=== PATIENT | female | born 1970 | race African-American/Black ===

== ENCOUNTER → 2017-07-29 | Day surgery (SDC) | payer OTHER ==
[~2017-07-29] MED LIST: SILVER NITRATE STICK TP; SURGICEL HEMOSTAT 4X8 EACH.
[2017-07-29] MEDS: LIDOCAINE 1%/EPI 1:100,000 20 ML VIAL. INJ (14:10)
[2017-07-29] MEDS: LIDOCAINE 2%/EPI 1:100,000 20 ML VIAL. IJ (14:40)
== END ==
LOC: SURG 13:24
DX: R59.9 Enlarged lymph nodes, unspecified (principal); Z88.8 Allergy status to other drugs, medicaments and biological substances
CPT/HCPCS: 11401; 88305; J3490

== ENCOUNTER → 2018-03-03 | Outpatient (CLI) | payer OTHER ==
[2017-07-29 13:47] VITALS: BP 147/97
[~2018-03-03] MED LIST changes: +FLUT9.9S NS; +NORG1TAB34 PO; -SILVER NITRATE STICK TP; -SURGICEL HEMOSTAT 4X8 EACH.
--- NOTE | 2018-03-04 08:58 | RAD ---
DATE: 03/03/2018 EXAM: MAMMO EDWARDO SCREENING BILATERAL HISTORY: Routine screening COMPARISON: 03/28/2017 screen mammogram performed at [facility] This study was interpreted with the benefit of Computerized Aided Detection (CAD). Breast Density: HETERO The breast parenchyma is heterogenously dense, which could reduce sensitivity of mammography. Breast parenchyma level C. FINDINGS: Benign right axillary lymph nodes are present. No suspicious calcifications, masses, or distortion. Parenchymal distribution is stable. IMPRESSION: Normal BI-RADS CATEGORY: 2 BENIGN FINDING(S) RECOMMENDED FOLLOW-UP: 12M 12 MONTH FOLLOW-UP PQRS compliance statement: Patient information was entered into a reminder system with a target due date in one year for the next mammogram. Mammography is a sensitive method for finding small breast cancers, but it does not detect them all and is not a substitute for careful clinical examination. A negative mammogram does not negate a clinically suspicious finding and should not result in delay in biopsying a clinically suspicious abnormality. "Our facility is accredited by the [employer] Mammography Program."
== END | disposition home or self-care (01) ==
LOC: MAMMO 17:00
PROVIDERS: ATTEND Family Medicine
DX: Z12.31 Encounter for screening mammogram for malignant neoplasm of breast (principal)
CPT/HCPCS: 77063; 77067

== ENCOUNTER 2018-05-21 11:18 | Emergency (ER) | payer OTHER ==
[~2018-05-21] VITALS: Ht 162.6 cm; Wt 58.1 kg
[2018-05-21 12:30] LABS: BILIRUBIN,URINE SMALL (NEG); CLARITY,URINE CLOUDY; COLOR,URINE AMBER; NITRITE,URINE NEGATIVE (NEG); PROTEIN,URINE 100 mg/dL (NEG-TRACE)
[2018-05-21] MEDS ORDERED: IV NORMAL SALINE 1000ML BAG 1,000 ML IV ONE (12:30)
[2018-05-21] MEDS ORDERED: KETOROLAC 30 MG/ML VIAL. IV ONE (12:30)
[2018-05-21] MEDS ORDERED: FAMOTIDINE 20 MG/2 ML VIAL IVP ONE (12:30)
[2018-05-21] MEDS ORDERED: ONDANSETRON PF 4 MG/2 ML VIAL. IV ONE (12:30)
--- NOTE | 2018-05-21 12:30 | PHYS DOC ---
Past Medical History Past Medical History: Hypertension Additional Past Surgical Histo: L LYMPH NODE REMOVED, BREAST CYST Additional Information: nonsmoker Alcohol Use: None Drug Use: None Adult General Chief Complaint Chief Complaint: NAUSEA/VOMITING/DIARRHA HPI HPI Patient is a 48-year-old female is presenting with nausea and vomiting 3 that began this morning. She reports left upper quadrant pain that is constant, dull , exacerbated by eating and movement, and at it's worst she reports this pain to be a 7/10 but it has subsided for now. She reports lethargy, chills, and dizziness. She denies fever, constipation, diarrhea, cough, and SOB. Her last menstrual period ended three days ago. She has a PMH of HTN controlled with amlodipine and losartan and she was able to take her medications this morning. She denies trauma. Review of Systems Review of Systems Constitutional: Denies fever, reports chills [] Eyes: Denies change in visual acuity, redness, or eye pain [] HENT: Denies nasal congestion or sore throat [] Respiratory: Denies cough or shortness of breath [] Cardiovascular: Denies chest pain or palpitations [] GI: Reports abdominal pain, nausea, and vomiting, denies constipation or diarrhea [] : Denies dysuria or hematuria [] Musculoskeletal: Denies back pain or joint pain [] Integument: Denies rash or skin lesions [] Neurologic: Denies headache, focal weakness or sensory changes [] Complete systems were reviewed and found to be within normal limits, except as documented in this note. Current Medications Current Medications Current Medications Medications (Trade) Dose Ordered Sig/[facility] Start Time Stop Time Status Last Admin Dose Admin Famotidine (Pepcid Vial) 20 mg 1X ONCE 05/21/18 12:30 05/21/18 12:31 DC 05/21/18 12:42 20 MG Ketorolac Tromethamine (Toradol 30mg Vial) 30 mg 1X ONCE 05/21/18 12:30 05/21/18 12:31 DC 05/21/18 12:42 30 MG Ondansetron HCl (Zofran) 4 mg 1X ONCE 05/21/18 12:30 05/21/18 12:31 DC 05/21/18 12:42 4 MG Sodium Chloride 1,000 ml @ 1,000 mls/hr 1X ONCE 05/21/18 12:30 05/21/18 13:29 DC 05/21/18 12:42 1,000 MLS/HR Allergies Allergies Allergies Coded Allergies Type Severity Reaction Last Updated Verified sulfamethoxazole Allergy Intermediate Hives 07/29/17 Yes trimethoprim Allergy Intermediate Hives 07/29/17 Yes morphine Allergy Mild VOMITING 05/21/18 Yes Influenza Virus Vaccines Allergy Unknown 05/21/18 Yes Physical Exam Physical Exam Constitutional: Well developed, well nourished, no acute distress, non-toxic appearance. [] HENT: Normocephalic, atraumatic, nose normal. [] Eyes: Conjunctiva normal, no discharge. [] Neck: Normal range of motion, no tenderness, supple. [] Cardiovascular: Heart rate regular rhythm, no murmur [] Lungs & Thorax: Bilateral breath sounds clear to auscultation [] Abdomen: Soft,mild tenderness in the LUQ, non-peritoneal. [] Skin: Warm, dry, no erythema, no rash. [] Extremities: No tenderness, no edema. [] Neurologic: Alert and oriented X 3, no focal deficits noted. [] Psychologic: Affect normal, judgement normal, mood normal. [] Current Patient Data Vital Signs Vital Signs Date Time Temp Pulse Resp B/P (MAP) Pulse Ox O2 Delivery O2 Flow Rate FiO2 05/21/18 13:20 77 19 102/62 (75) 100 Room Air 05/21/18 11:50 97.9 97.9 Lab Values Laboratory Tests Test 05/21/18 12:00 05/21/18 12:35 Urine Collection Type Unknown Urine Color Patricia Urine Clarity Cloudy Urine pH 6.0 Urine Specific [place] 1.025 Urine Protein 100 mg/dL (NEG-TRACE) Urine Glucose (UA) Negative mg/dL (NEG) Urine Ketones (Stick) 15 mg/dL (NEG) Urine Blood Moderate (NEG) Urine Nitrite Negative (NEG) Urine Bilirubin Small (NEG) Urine Urobilinogen Dipstick 1.0 mg/dL (0.2 mg/dL) Urine Leukocyte Esterase Trace (NEG) Urine RBC 11-20 /HPF (0-2) Urine WBC 5-10 /HPF (0-4) Urine Squamous Epithelial Cells Mod /LPF Urine Bacteria Many /HPF (0-FEW) Urine Mucus Marked /LPF Urine Test Negative (NEG) White Blood Count 21.2 x10^3/uL (4.0-11.0) H Red Blood Count 3.89 x10^6/uL (3.50-5.40) Hemoglobin 12.5 g/dL (12.0-15.5) Hematocrit 38.4 % (36.0-47.0) Mean Corpuscular Volume 99 fL (79-100) Mean Corpuscular Hemoglobin 32 pg (25-35) Mean Corpuscular Hemoglobin Concent 33 g/dL (31-37) Red Cell Distribution Width 13.4 % (11.5-14.5) Platelet Count 306 x10^3/uL (140-400) Neutrophils (%) (Auto) 91 % (31-73) H Lymphocytes (%) (Auto) 4 % (24-48) L Monocytes (%) (Auto) 4 % (0-9) Eosinophils (%) (Auto) 0 % (0-3) Basophils (%) (Auto) 0 % (0-3) Neutrophils # (Auto) 19.4 x10^3uL (1.8-7.7) H Lymphocytes # (Auto) 0.8 x10^3/uL (1.0-4.8) L Monocytes # (Auto) 0.9 x10^3/uL (0.0-1.1) Eosinophils # (Auto) 0.0 x10^3/uL (0.0-0.7) Basophils # (Auto) 0.1 x10^3/uL (0.0-0.2) Segmented Neutrophils % 93 % (35-66) H Lymphocytes % 1 % (24-48) L Monocytes % 6 % (0-10) Toxic Vacuolation Slight Platelet Estimate Adequate (ADEQUATE) Sodium Level 133 mmol/L (136-145) L Potassium Level 3.9 mmol/L (3.5-5.1) Chloride Level 102 mmol/L (98-107) Carbon Dioxide Level 24 mmol/L (21-32) Anion Gap 7 (6-14) Blood Urea Nitrogen 14 mg/dL (7-20) Creatinine 0.9 mg/dL (0.6-1.0) Estimated GFR (Cockcroft-Gault) 80.9 BUN/Creatinine Ratio 16 (6-20) Glucose Level 93 mg/dL (70-99) Calcium Level 9.4 mg/dL (8.5-10.1) Magnesium Level 2.1 mg/dL (1.8-2.4) Total Bilirubin 0.7 mg/dL (0.2-1.0) Aspartate Amino Transferase (AST) 48 U/L (15-37) H Alanine Aminotransferase (ALT) 32 U/L (14-59) Alkaline Phosphatase 65 U/L (46-116) Total Protein 7.8 g/dL (6.4-8.2) Albumin 3.4 g/dL (3.4-5.0) Albumin/Globulin Ratio 0.8 (1.0-1.7) L Lipase 102 U/L (73-393) Laboratory Tests 05/21/18 12:35 Laboratory Tests 05/21/18 12:35 EKG EKG [] Radiology/Procedures Radiology/Procedures PROCEDURE: CT ABDOMEN PELVIS WO CONTRAST Examination: CT of the abdomen pelvis without contrast HISTORY: History of left abdominal pain, hematuria COMPARISON: None available Technique: Axial CT images of the abdomen pelvis were performed without contrast. Coronal and sagittal deformities are performed Exposure: One or more of the following individualized dose reduction techniques were utilized for this examination: 1. Automated exposure control 2. Adjustment of the mA and/or kV according to patient size 3. Use of iterative reconstruction technique FINDINGS: The bibasilar lungs are clear. No evidence of free air identified in the abdomen. The visualized noncontrasted liver, spleen, adrenals grossly appears unremarkable. Multiple gallstones identified within the gallbladder. There is a large gallstone identified in the proximal gallbladder. The gallbladder is mildly distended. The stomach is mildly distended. The visualized pancreas grossly appears unremarkable. The small bowel is nondilated. Feces and gas noted in the colon. The appendix is not evident. Punctate 3 mm intrarenal collecting system calculus identified in the right kidney. No evidence of calculus identified in the left kidney. Calcified pelvic phleboliths identified. There is mild fat stranding identified in the pelvis about the distal uterus and cervix region, nonspecific. Mild degenerative changes lumbar spine. There is a small lucent focus identified in the medial femoral head region measuring 8 mm, uncertain etiology probably benign. IMPRESSION: 1. Cholelithiasis. Large gallstone identified in the proximal gallbladder. Ultrasound right upper quadrant is recommended. 2. There is minimal fat stranding identified about the distal uterus and cervix region, nonspecific ultrasound pelvis can be considered. 3. Punctate 3 mm calculus right kidney. No evidence of hydronephrosis. 4. There is a small lucent focus identified in the medial left femoral head region measuring 8 mm, uncertain etiology probably benign. If there is left hip pain a follow-up nonemergent bone scan may be useful. Electronically signed by: Keith Miranda MD (05/21/2018 1:57 PM) [place] [id number] Course & Med Decision Making Course & Med Decision Making Pertinent Labs and Imaging Studies reviewed. (See chart for details) Patient is a 48-year-old female is presenting with one-day history of nausea and vomiting. History and physical exam were indicative of viral gastroenteritis. Labs were obtained and posted to chart. CBC showed a white count of 21.2. CMP showed mild elevation of AST at 45. UA showed some blood and white cells but was concerning for contamination. Patient was asymptomatic for urinary symptoms. Abdominal CT was ordered because of the white count and showed cholelithiasis and mild distension of the gall bladder, minimal fat stranding about the distal uterus, 3mm kidney stone within the right kidney with no hydronephrosis, and small lucent focus in the medial left femoral head. These findings were discussed with the patient and given copy of CT results and was given referral for general surgery and orthopedic surgery to have these findings further evaluated if they should become worse. Pain and nausea were addressed. Patient stable for discharge with outpatient follow-up with PCP. Discussed findings and plan with patient, who acknowledges understanding and agreement. Dragon Disclaimer Dragon Disclaimer This electronic medical record was generated, in whole or in part, using a voice recognition dictation system. Departure Departure Impression: Primary Impression: Abdominal pain Additional Impressions: Nausea & vomiting Cholelithiasis Abnormal finding on radiology exam Disposition: HOME, SELF-CARE Condition: STABLE Referrals: BE DIEHL MD (PCP) TENISHA LARSON MD, JOHN N MD Patient Instructions: Abdominal Pain (Nonspecific), Cholelithiasis, Easy-to- Read, Diet for Diarrhea, Adult, Incidental Abdominal Radiological Finding, Nausea and Vomiting, [id number] Additional Instructions: Start with clear liquid diet (ie augie charles/7-up/sprite/water/gatoraid/chicken broth) and advance as tolerated to a bland diet (saltine crackers/white rice/ dry toast). Scripts Hyoscyamine Sulfate (LEVSIN-SL) 0.125 Mg Tab.subl 1-2 TAB SL PRN Q4HRS, #20 TAB 1 Refill Prov: SOFIA TOVAR DO 05/21/18 Famotidine (PEPCID) 20 Mg Tablet 20 MG PO BID, #14 TAB Prov: SOFIA TOVAR DO 05/21/18 Ondansetron (ONDANSETRON ODT) 4 Mg Tab.rapdis 1 TAB PO PRN Q6-8HRS PRN for NAUSEA, #16 TAB Prov: SOFIA TOVAR DO 05/21/18 Problem Qualifiers Primary Impression: Abdominal pain Abdominal location: left upper quadrant Qualified Codes: R10.12 - Left upper quadrant pain Additional Impressions: Nausea & vomiting Vomiting type: unspecified Vomiting Intractability: non-intractable Qualified Codes: R11.2 - Nausea with vomiting, unspecified Cholelithiasis Cholelithiasis location: gallbladder Cholecystitis presence: without cholecystitis Biliary obstruction: without biliary obstruction Qualified Codes: K80.20 - Calculus of gallbladder without cholecystitis without obstruction SOFIA TOVAR DO May 21, 2018 12:30
[2018-05-21 12:36] LABS: SQUAMOUS EPITHELIAL CELL,UR MOD /LPF
[2018-05-21 12:37] LABS: BACTERIA,URINE MANY /HPF (0-FEW)
[2018-05-21 12:48] LABS: BASO # 0.1 x10^3/uL (0.0-0.2); BASO % 0 % (0-3); EOS % 0 % (0-3); HEMATOCRIT 38.4 % (36.0-47.0); HEMOGLOBIN 12.5 g/dL (12.0-15.5); LYMPH # 0.8 x10^3/uL (1.0-4.8); LYMPH % 4 % (24-48); MEAN CORPUSCULAR HEMOGLOBIN 32 pg (25-35); MEAN CORPUSCULAR HGB CONC 33 g/dL (31-37); MEAN CORPUSCULAR VOLUME 99 fL (79-100); MONO # 0.9 x10^3/uL (0.0-1.1); MONO % 4 % (0-9); NEUT # 19.4 x10^3uL (1.8-7.7); NEUT % 91 % (31-73); PLATELET COUNT 306 x10^3/uL (140-400); RED BLOOD COUNT 3.89 x10^6/uL (3.50-5.40); RED CELL DISTRIBUTION WIDTH 13.4 % (11.5-14.5); WHITE BLOOD COUNT 21.2 x10^3/uL (4.0-11.0)
[2018-05-21 13:05] LABS: CALCIUM 9.4 mg/dL (8.5-10.1); CREATININE 0.9 mg/dL (0.6-1.0); GFR 80.9; POTASSIUM 3.9 mmol/L (3.5-5.1)
[2018-05-21 13:11] LABS: ALBUMIN 3.4 g/dL (3.4-5.0); ALBUMIN/GLOBULIN RATIO 0.8 (1.0-1.7); MAGNESIUM 2.1 mg/dL (1.8-2.4); TOTAL BILIRUBIN 0.7 mg/dL (0.2-1.0); TOTAL PROTEIN 7.8 g/dL (6.4-8.2)
[2018-05-21 13:15] LABS: U PREG PATIENT NEGATIVE (NEG)
[2018-05-21 13:23] LABS: % LYMPHS 1 % (24-48); % MONOS 6 % (0-10); % SEGS 93 % (35-66); PLT ESTIMATE ADEQUATE (ADEQUATE); TOXIC VACUOLATION SLIGHT
[2018-05-21 14:00] VITALS: BP 98/62
--- NOTE | 2018-05-21 14:01 | RAD ---
Examination: CT of the abdomen pelvis without contrast HISTORY: History of left abdominal pain, hematuria COMPARISON: None available Technique: Axial CT images of the abdomen pelvis were performed without contrast. Coronal and sagittal deformities are performed Exposure: One or more of the following individualized dose reduction techniques were utilized for this examination: 1. Automated exposure control 2. Adjustment of the mA and/or kV according to patient size 3. Use of iterative reconstruction technique FINDINGS: The bibasilar lungs are clear. No evidence of free air identified in the abdomen. The visualized noncontrasted liver, spleen, adrenals grossly appears unremarkable. Multiple gallstones identified within the gallbladder. There is a large gallstone identified in the proximal gallbladder. The gallbladder is mildly distended. The stomach is mildly distended. The visualized pancreas grossly appears unremarkable. The small bowel is nondilated. Feces and gas noted in the colon. The appendix is not evident. Punctate 3 mm intrarenal collecting system calculus identified in the right kidney. No evidence of calculus identified in the left kidney. Calcified pelvic phleboliths identified. There is mild fat stranding identified in the pelvis about the distal uterus and cervix region, nonspecific. Mild degenerative changes lumbar spine. There is a small lucent focus identified in the medial femoral head region measuring 8 mm, uncertain etiology probably benign. IMPRESSION: 1. Cholelithiasis. Large gallstone identified in the proximal gallbladder. Ultrasound right upper quadrant is recommended. 2. There is minimal fat stranding identified about the distal uterus and cervix region, nonspecific ultrasound pelvis can be considered. 3. Punctate 3 mm calculus right kidney. No evidence of hydronephrosis. 4. There is a small lucent focus identified in the medial left femoral head region measuring 8 mm, uncertain etiology probably benign. If there is left hip pain a follow-up nonemergent bone scan may be useful. Electronically signed by: Keith Miranda MD (05/21/2018 1:57 PM) [place] [id number]
[2018-05-21] MEDS ORDERED: FAMO-63 PO (14:20)
[2018-05-21] MEDS ORDERED: ONDA4TAB12 PO (14:20)
[2018-05-21] MEDS ORDERED: HYOS0.1265 SL (14:20)
== END 2018-05-21 14:40 | disposition home or self-care (01) ==
LOC: ER 11:18
DX: K80.20 Calculus of gallbladder without cholecystitis without obstruction (principal); R93.89 Abnormal findings on diagnostic imaging of other specified body structures; R11.2 Nausea with vomiting, unspecified; R42 Dizziness and giddiness; R53.83 Other fatigue; R68.83 Chills (without fever); I10 Essential (primary) hypertension; Z88.2 Allergy status to sulfonamides; Z88.1 Allergy status to other antibiotic agents; Z88.5 Allergy status to narcotic agent; Z88.7 Allergy status to serum and vaccine
CPT/HCPCS: 36415; 74176; 80053; 81001; 81025; 83690; 83735; 85007; 85025; 96361; 96374; 96375; 99284; J1885; J2405; J3490; J7030; 87086

== ENCOUNTER 2018-06-04 09:30 | Day surgery (SDC) | payer OTHER ==
[~2018-06-04] VITALS: Ht 162.6 cm; Wt 62.1 kg
[~2018-06-04 09:30] MED LIST changes: +FAMO-63 PO; +HYDROmorphone 2 MG/ML VIAL IV PRN; +HYOS0.1265 SL; +IV RINGERS,LACTATED 1000ML 1,000 ML IV SCH; +LIDOCAINE 1% PF 2 ML VIAL. ID PRN; +ONDA4TAB12 PO; +ONDANSETRON PF 4 MG/2 ML VIAL. IV PRN; +PROCHLORPERAZINE 10 MG/2 ML VIAL. IV PRN; +fentaNYL PF VIAL 100 MCG/2 ML VIAL IV PRN
[2018-06-04] MEDS ORDERED: ONDANSETRON PF 4 MG/2 ML VIAL. ONE (10:01)
[2018-06-04] MEDS ORDERED: fentaNYL PF VIAL 100 MCG/2 ML VIAL ONE ×3 (10:01→12:20)
[2018-06-04] MEDS ORDERED: DEXAMETHASONE SOD PHOS 20 MG/5 ML VIAL. ONE (10:01)
[2018-06-04] MEDS ORDERED: LIDOCAINE 2% PF Vial for OR 5 ML VIAL. ONE (10:01)
[2018-06-04] MEDS ORDERED: ROCURONIUM 50 MG/5 ML VIAL. ONE (10:01)
[2018-06-04] MEDS ORDERED: FAMOTIDINE 20 MG/2 ML VIAL ONE (10:01)
[2018-06-04] MEDS ORDERED: MIDAZOLAM HCL/PF 2 MG/2 ML VIAL. ONE (10:01)
[2018-06-04] MEDS ORDERED: PROPOFOL 20 ML IV ONE (10:01)
[2018-06-04] MEDS ORDERED: BUPIVACAINE-EPI 0.25%-1:200000 MPF 30 ML VIAL. ONE (10:01)
[2018-06-04] MEDS ORDERED: AMLO5TAB10 PO (10:10)
[2018-06-04 10:28] LABS: U PREG PATIENT NEGATIVE (NEG)
[2018-06-04] MEDS ORDERED: GLYCOPYRROLATE 1 MG/5 ML VIAL. ONE (11:14)
[2018-06-04] MEDS ORDERED: KETOROLAC 30 MG/ML INJ FOR OR. INJ ONE (11:14)
[2018-06-04] MEDS ORDERED: NEOSTIGMINE 10 MG/10 ML VIAL. ONE (11:14)
[2018-06-04] MEDS ORDERED: DESFLURANE 31 TO 60 MINUTES IH ONE (11:22)
--- NOTE | 2018-06-04 11:31 | PDOC4 ---
Operative Note Operative Note Date: 06/04/2018 Preoperative diagnosis: Chronic cholecystitis cholelithiasis Postoperative diagnosis: Same Procedure: Laparoscopic cholecystectomy Surgeon: William Specimen: Gallbladder Dictation: Patient is a 48-year-old female has had right upper quadrant abdominal pain ultrasound showing gallstones procedure of laparoscopic cholecystectomy was explained to the patient in detail all risks and benefits were also discussed including bleeding infection injury to intra-abdominal contents possibly necessitating further open operations alternatives to this procedure also discussed with the patient who seemed to understand and gave both verbal and written consent to have the procedure performed. Patient was taken to the operating room placed in supine position general anesthesia was initiated once the patient was asleep and intubated her abdomen was prepped and draped in usual sterile fashion using ChloraPrep. An area just below the umbilicus was injected with quarter percent Marcaine with epinephrine incision was made left blade scalpel Veress needle was placed within the abdomen creating pneumoperitoneum once this was complete 11 mm port was placed and a 5 mm camera was placed within the abdomen which was inspected no other abdomen malleus were noted was noted there was fair amount of adhesions from the omentum to the gallbladder area and a 5 mm port was then placed in the epigastrium a second 5 mm port was placed in the right lateral abdomen and one in the right mid abdomen all under direct visualization the dome of the gallbladder was grasped and retracted cephalad and infundibulum the gallbladder was grasped and retracted laterally the adherent tissues and omentum that were adherent to the gallbladder were taken down with blunt dissection. The cystic artery and cystic vein were visualized and doubly clipped with 5 mm clip zig zag stitcher and then transected the gallbladder is taken off the liver with eclectic cautery place an Endo Catch bag and removed from the umbilicus the right upper quadrant was irrigated and suctioned dry hemostasis debris appropriately pneumoperitoneum was reduced all ports were removed fascial defect at the umbilicus was closed with [id number] 0 Vicryl suture and the skin was approximated all port sites for septic and a Monocryl Mastisol Steri- Strips and island dressings were applied. The patient was awakened and extubated in the operating room taken to recovery in stable condition all sponge instrument needle counts listed as correct estimated blood loss 5 mL JANE DICK MD Jun 04, 2018 11:31
--- NOTE | 2018-06-04 11:32 | DISCH ---
DISCHARGE INSTRUCTIONS Condition on Discharge Condition on Discharge: Stable Activity After Discharge Activity Instructions for Disc: Avoid exertion Other activity instructions: no lifting more than 20 pounds for 2 weeks Diet after Discharge Diet after Discharge: Low Fat Wound Incision Care Other wound/incision instructi: May shower in 24 hours Contacting the DRTrisha after DC Call your doctor for: If your condition worsens Follow-Up Follow up with: William in 2 weeks JANE DICK MD Jun 04, 2018 11:32
[2018-06-04] MEDS ORDERED: OXYC1TAB15 PO (11:56)
[2018-06-04] MEDS ORDERED: oxyCODONE/APAP 5/325 1 TAB TABLET PO ONE ×2 (12:00)
[2018-06-04 14:45] VITALS: BP 112/68
--- NOTE | 2018-06-08 13:08 | PATHOLOGY ---
[facility] Accession Number: [id number] . 01 Material submitted: . GALLBLADDER . 01 Clinical history: . Cholecystitis, cholelithiasis . 02 Diagnosis: Gallbladder, laparoscopic cholecystectomy: - Cholelithiasis. - Chronic cholecystitis. (JPM:екатерина; 06/08/2018) QMS/06/08/2018 . 02 Comment: There is no evidence of malignancy. . 02 Electronically signed: . Stan Jamison MD, Pathologist NPI- [id number] . 01 Gross description: . The specimen is received in formalin, labeled "Valentina Stone, gallbladder". Received is an intact gallbladder measuring 10.7 x 2.7 x 2.7 cm in greatest dimensions displaying a ku-lozano serosal surface. Opening the gallbladder reveals a velvety, bile-stained mucosa with a gallbladder wall thickness of 0.1 cm. Calculi are present displaying a green and granular to multifaceted appearance, and no masses or lesions are noted grossly. Landscape Designer sections, to include the proximal margin, are submitted in cassette A1. (CAA; 06/05/2018) QAC/QAC . 02 Pathologist provided ICD-10: K80.10 . 02 CPT . 704311 Specimen Comment: A courtesy copy of this report has been sent to Specimen Comment: [phone], . Specimen Comment: Report sent to / DR DIEHL Performed at: 01 [facility] [address], [place] [id number] MD Tomas Sahni MD Phone: [phone] Performed at: 02 [facility] [address] [place], [place] [id number] MD Stan Jamison MD Phone: [phone]
== END 2018-06-04 14:45 | disposition home or self-care (01) ==
LOC: SURG 09:30
PROVIDERS: ATTEND Surgery
DX: K80.10 Calculus of gallbladder with chronic cholecystitis without obstruction (principal); I10 Essential (primary) hypertension; Z88.5 Allergy status to narcotic agent; Z88.1 Allergy status to other antibiotic agents; Z88.7 Allergy status to serum and vaccine; Z79.899 Other long term (current) drug therapy; Z98.890 Other specified postprocedural states
CPT/HCPCS: 47562; 81025; A7015; J0696; J1100; J1885; J2001; J2250; J2405; J2704; J2710; J3010; J3490; J7030; J7120

== ENCOUNTER → 2018-12-25 | Outpatient (CLI) | payer OTHER ==
[~2018-12-25] MED LIST changes: +AMLO5TAB10 PO; -HYDROmorphone 2 MG/ML VIAL IV PRN; -IV RINGERS,LACTATED 1000ML 1,000 ML IV SCH; -LIDOCAINE 1% PF 2 ML VIAL. ID PRN; -NORG1TAB34 PO; +NORG1TAB70 PO; -ONDANSETRON PF 4 MG/2 ML VIAL. IV PRN; +OXYC1TAB15 PO; -PROCHLORPERAZINE 10 MG/2 ML VIAL. IV PRN; -fentaNYL PF VIAL 100 MCG/2 ML VIAL IV PRN
--- NOTE | 2018-12-25 19:29 | RAD ---
EXAM: AP, mortise and oblique views of the right ankle DATE: 12/25/2018 12:00 AM INDICATION: Right ankle pain. Right foot pain. COMPARISON: No Prior FINDINGS/ IMPRESSION: No evidence of acute fracture or dislocation. Joint spaces are preserved without significant degenerative/proliferative change. Ankle mortise is congruent. Talar dome is intact. Electronically signed by: Michael Lieberman MD (12/25/2018 4:29 PM) [facility]
== END | disposition home or self-care (01) ==
LOC: RAD 07:20
PROVIDERS: ATTEND Nurse Practitioner Gerontology
DX: M25.571 Pain in right ankle and joints of right foot (principal)
CPT/HCPCS: 73610